=== PATIENT | female | born 1955 | race Caucasian/White ===

== ENCOUNTER → 2016-08-07 | Outpatient (CLI) | payer OTHER ==
--- NOTE | 2016-08-07 09:33 | US ---
Ultrasound Thyroid History: The ., nontoxic single thyroid goiter. Prior Demario's thyroiditis. COMPARISON: Ultrasound February 2016. Technique: Longitudinal and transverse ultrasound imaging of the thyroid gland. Findings: Right lobe of the thyroid measures 6 x 2 x 2.4 cm. Left lobe of the thyroid measures 5.8 x 1.8 x 2.3 cm. Isthmus thickness is 0.6 cm. The entire thyroid gland including both lobes is diffusely heterogenous throughout. In the lower pole the right lobe there is a solitary focal hypoechoic nodule measuring 9 x 7 x 5 mm previously measuri ng 9 x 8 x 5 mm without significant change in size. Impression: 1. Diffusely heterogenous thyroid gland. 2. No change in right lobe lower pole 9 mm nodule.
== END ==
LOC: CIMAGING 08:28
PROVIDERS: ATTEND Family Medicine
DX: E04.1 Nontoxic single thyroid nodule (principal)
CPT/HCPCS: 76536-PO

== ENCOUNTER → 2017-05-29 | Outpatient (CLI) | payer OTHER | LOC: FIMAGING 10:29 | PROVIDERS: ATTEND Family Medicine | DX: Z12.31 Encounter for screening mammogram for malignant neoplasm of breast (principal) | CPT/HCPCS: G0202 ==